=== PATIENT | male | born 1965 ===

== ENCOUNTER 2021-06-05 09:20 | Emergency (ER) | payer MEDICAID, SELFPAY ==
--- NOTE | ~2021-06-05 | CT_ITS ---
EXAMINATION: CT HEAD WITHOUT CONTRAST CLINICAL INFORMATION: Left-sided weakness for one week COMPARISON: Previous head CT August 2010 TECHNIQUE: Contiguous axial imaging was performed from the skull base to vertex without intravenous administration of contrast. This CT examination was performed using dose optimization techniques as appropriate, variously including the following: *Automated exposure control *Adjustment of mA and/or kV according to patient size (this includes techniques or standardized protocols for targeted exams where dose is matched to indication/reason for exam; i.e. extremities or head) *Use of iterative reconstruction technique DLP: 731 mGy-cm FINDINGS: There is no evidence of acute intracranial hemorrhage or territorial infarction. No abnormal mass effect or midline shift is seen. [place] to white matter differentiation is well preserved. No extra-axial fluid collections are identified. The ventricles are normal in size. There is no abnormal attenuation within the brain parenchyma. The osseous structures and soft tissues are normal. There is a focal small polyp or cyst in the left maxillary sinus. The mastoid air cells and visualized portions of the paranasal sinuses are otherwise clear. CT/CT head/brain wo con IMPRESSION: No acute intracranial pathology.
--- NOTE | 2021-06-05 10:13 | ED.NEUROSD ---
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 Mode of arrival: ambulatory Limitations: no limitations History of Present Illness HPI Narrative: weakness, stress, spirit left his body 1 week ago thinks he had a stroke Onset (ago): week(s) (1) Location: left arm and left leg History of same: No Severity: moderate Quality: weak Relieving factors: none Exacerbating factors: none Context: sudden onset On Anticoagulants: No Associated symptoms: other (anxiety, stress, weakness) Treatments Prior to Arrival: none Related Data Home Medications Medication Instructions Recorded Confirmed acetaminophen 325 mg tablet 650 mg PO Q6H PRN 06/05/21 06/05/21 aspirin 81 mg tablet,delayed 1 tab PO DAILY 06/05/21 06/05/21 release atenolol 50 mg tablet 1 tab PO DAILY 06/05/21 06/05/21 atorvastatin 40 mg tablet 1 tab PO BEDTIME 06/05/21 06/05/21 famotidine 40 mg tablet (Pepcid) 40 mg PO DAILY PRN 06/05/21 06/05/21 gabapentin 100 mg capsule 1 cap PO TID 06/05/21 06/05/21 hydroxyzine pamoate 25 mg capsule 1 cap PO BID PRN 06/05/21 06/05/21 losartan 100 mg tablet 1 tab PO DAILY 06/05/21 06/05/21 metformin 1,000 mg tablet 1 tab PO BID 06/05/21 06/05/21 omeprazole 20 mg capsule,delayed 1 cap PO DAILY 06/05/21 06/05/21 release paroxetine HCl 40 mg tablet 1 tab PO DAILY 06/05/21 06/05/21 Previous Rx's Medication Instructions Recorded metformin 1,000 mg tablet 1,000 mg PO BID #60 tab 06/05/21 Allergies Allergy/AdvReac Type Severity Reaction Status Date / Time acetaminophen [From Percocet] Allergy Mild HYPERTENSIO Unverified 06/12/20 16:21 N citalopram [From Celexa] Allergy Mild RASH Unverified 06/12/20 16:21 oxycodone [From Percocet] Allergy Mild HYPERTENSIO Unverified 06/12/20 16:21 N lisinopril Allergy Unknown Verified 02/14/19 00:00 Review of Systems Review of Systems: Constitutional : No Weight loss, No Fever, No Chills, No Fatigue, No Malaise ENT/Mouth : No sore throat, No Rhinorrhea Eyes: No Eye Pain, No Swelling, No Redness Cardiovascular : No Chest Pain, No SOB, No Dyspnea on Exertion, No Orthopnea, No Edema, No Palpitations Respiratory : No Cough, No Sputum, No Wheezing Gastrointestinal : No Nausea, No Vomiting, No Diarrhea, No Constipation, No abdominal Pain, No Hematochezia, No Melena Genitourinary : No Dysuria, No Urinary Frequency, No Hematuria, Musculoskeletal : No joint pain, No Myalgias, No Joint Swelling Skin : No Skin Lesions, No rash Neuro : pos Weakness, No Numbness, No Dizziness, No Headache Psych : pos Anxiety/Panic, No Depression Heme/Lymph: No Bruising, No Bleeding,No Lymphadenopathy Endocrine : No Polyuria, No Polydipsia All other systems reviewed and are negative [facility] Past Medical History Attestation statement: The following information was validated with the patient. Medical History Anxiety Depressed Diabetes HTN (hypertension) Social History Social History Patient Tobacco Use Status: Never used Tobacco Use of substances other than those prescribed or required for medical reasons: No Advance Directives: Yes Advance Directives Information Provided: Yes Advance Directives on File: No Physical Exam Vital Signs: Vital Signs: Last Vital Signs Temp 98.6 F 06/05/21 10:18 Pulse 71 06/05/21 11:14 Resp 15 06/05/21 11:14 BP 160/88 H 06/05/21 11:14 Pulse Ox 97 06/05/21 11:14 Body Mass Index 38.4 Appearance: Alert. Oriented X3. No acute distress. Anxious and tearful Eyes: Pupils equal, round and reactive to light. ENT: Pharynx normal. Neck: Normal inspection. Neck supple. CVS: Normal heart rate and rhythm. Pulses normal. Respiratory: No respiratory distress. Breath sounds normal. Abdomen: Soft and nontender. Skin: Skin warm and dry. Normal skin color. Normal skin turgor. Extremities: No lower extremity edema. No calf ttp Neuro: Oriented X 3. No motor deficit. No sensory deficit. Course Course Course Narrative: negative head CT at one week, BP improved workup negative no deficits seen MDM - Neuro Symptoms/Deficit MDM Narrative Medical decision making narrative: 56 yo male with HTN, DM, anxiety here tearful reports L sided weakness and he had a stroke or the spirit left his body 1 week ago - on exam NIH is 0. At this time no signs of deficits will obtain labs, CT head, EKG, repeat assessments I have no signs of deficits and he denie waxing and waning so TIA seems unlikely Lab Data Result diagrams: 06/05/21 10:38 06/05/21 10:38 Labs: Lab Results 06/05/21 06/05/21 06/05/21 Range/Units 10:38 10:38 10:38 WBC 6.4 (4.8-10.8) X10*3/uL RBC 4.60 (4.60-5.80) X10*6/uL Hgb 14.0 (14.0-18.0) g/dl Hct 40.7 L (42-52) % MCV 88.5 (80-98) fL MCH 30.4 (27.0-33.0) pg MCHC 34.4 (31.0-36.0) g/dl RDW 12.5 (11.0-16.0) % Plt Count 252 (160-400) X10*3/uL MPV 10.3 (9.4-12.4) fL Immature Gran % (Auto) 0.5 H (0.0-0.4) % Neut % (Auto) 62.6 (45-73) % Lymph % (Auto) 25.7 (20-40) % Hitchcock % (Auto) 8.4 (2-11) % Eos % (Auto) 2.2 (0-4) % Baso % (Auto) 0.6 (0-2) % Lymph # (Auto) 1.7 (1.2-4.9) X10*3/uL Hitchcock # (Auto) 0.5 (0.1-1.2) X10*3/uL Eos # (Auto) 0.1 (0.0-0.4) X10*3/uL Baso # (Auto) 0.0 (0.0-0.2) X10*3/uL Abs Immat Gran (auto) 0.03 (0.00-0.03) X10*3/uL Absolute Neuts (auto) 4.0 (2.0-8.3) X10*3/uL Absolute Nucleated RBC 0.000 (0.0-0.012) X10*3/uL Nucleated RBC % (auto) 0.0 (0.0-0.2) /100WBC PT (9.9-13.0) SEC INR (0.9-1.1) APTT (24.1-38.0) SEC Sodium 138 (135-145) mmol/L Potassium 4.2 (3.3-5.1) mmol/L Chloride 101 (96-108) mmol/L Carbon Dioxide 29 (22-29) mmol/L Anion Gap 12 (12-20) BUN 14 (9-16) mg/dL Creatinine 1.10 (0.5-1.4) mg/dL Estim Creat Clear Calc 74.2 Estimated GFR > 60 Random Glucose 227 H (60-115) mg/dL Calcium 9.6 (8.4-10.2) mg/dL Magnesium (1.6-2.6) mg/dL Total Bilirubin (0.0-1.0) mg/dL Direct Bilirubin (0.0-0.5) mg/dL AST (5-37) U/L ALT (0-40) U/L Alkaline Phosphatase (39-117) U/L Troponin I High Sens (<3.5-35.0) ng/L Total Protein (6.5-8.0) g/dL Albumin (3.5-5.0) g/dL Lipase (8-78) U/L TSH (0.32-4.0) uIU/mL COVID-19 (STEVIE) Negative (Negative) COVID-19 Clin Com See Note 06/05/21 06/05/21 06/05/21 Range/Units 10:38 10:38 10:38 WBC (4.8-10.8) X10*3/uL RBC (4.60-5.80) X10*6/uL Hgb (14.0-18.0) g/dl Hct (42-52) % MCV (80-98) fL MCH (27.0-33.0) pg MCHC (31.0-36.0) g/dl RDW (11.0-16.0) % Plt Count (160-400) X10*3/uL MPV (9.4-12.4) fL Immature Gran % (Auto) (0.0-0.4) % Neut % (Auto) (45-73) % Lymph % (Auto) (20-40) % Hitchcock % (Auto) (2-11) % Eos % (Auto) (0-4) % Baso % (Auto) (0-2) % Lymph # (Auto) (1.2-4.9) X10*3/uL Hitchcock # (Auto) (0.1-1.2) X10*3/uL Eos # (Auto) (0.0-0.4) X10*3/uL Baso # (Auto) (0.0-0.2) X10*3/uL Abs Immat Gran (auto) (0.00-0.03) X10*3/uL Absolute Neuts (auto) (2.0-8.3) X10*3/uL Absolute Nucleated RBC (0.0-0.012) X10*3/uL Nucleated RBC % (auto) (0.0-0.2) /100WBC PT 10.7 (9.9-13.0) SEC INR 0.9 (0.9-1.1) APTT 35.0 (24.1-38.0) SEC Sodium (135-145) mmol/L Potassium (3.3-5.1) mmol/L Chloride (96-108) mmol/L Carbon Dioxide (22-29) mmol/L Anion Gap (12-20) BUN (9-16) mg/dL Creatinine (0.5-1.4) mg/dL Estim Creat Clear Calc Estimated GFR Random Glucose (60-115) mg/dL Calcium (8.4-10.2) mg/dL Magnesium 1.8 (1.6-2.6) mg/dL Total Bilirubin 0.6 (0.0-1.0) mg/dL Direct Bilirubin 0.2 (0.0-0.5) mg/dL AST 16 (5-37) U/L ALT 25 (0-40) U/L Alkaline Phosphatase 51 (39-117) U/L Troponin I High Sens < 3.5 (<3.5-35.0) ng/L Total Protein 7.7 (6.5-8.0) g/dL Albumin 4.2 (3.5-5.0) g/dL Lipase 24 (8-78) U/L TSH 1.13 (0.32-4.0) uIU/mL COVID-19 (STEVIE) (Negative) COVID-19 Clin Com ECG Data Attestation: I personally reviewed and interpreted this ECG as follows: ECG interpretation date: 06/05/21 ECG interpretation time: 10:31 Interpretation: Rate: 74 Rhythm: NSR Baring: left, LVH Normal P waves. Normal BRENT. Normal QRS complex. ST T wave : normal no ABHAY qTC: normal prior studies: no acute ischemia The study has been interpreted contemporaneously by me. . NIH Stroke Scale Internal: Initial- Upon Arrival Level of Consciousness: Alert Level of Consciousness Questions: Answers both questions correctly Level of Consciousness Commands: Performs both tasks correctly Best Gaze: Normal Visual: No visual loss Facial Palsy: Normal Motor Arm (Right): No drift Motor Arm (Left): No drift Motor Leg (Right): No drift Motor Leg (Left): No drift Limb Ataxia: Absent Sensory: Normal Best Language: No aphasia Dysarthia: Normal Extinction and Inattention: No abnormality Score: 0 Discharge Plan Discharge Clinical Impression: Weakness, Anxiety Patient Disposition: Home, Self-Care Instructions: Weakness (ED), Anxiety (ED) Additional Instructions: return to ED for any worsening symptoms or concerns FINDINGS: There is no evidence of acute intracranial hemorrhage or territorial infarction. No abnormal mass effect or midline shift is seen. [place] to white matter differentiation is well preserved. No extra-axial fluid collections are identified. The ventricles are normal in size. There is no abnormal attenuation within the brain parenchyma. The osseous structures and soft tissues are normal. There is a focal small polyp or cyst in the left maxillary sinus. The mastoid air cells and visualized portions of the paranasal sinuses are otherwise clear. ? CT/CT head/brain wo con IMPRESSION: No acute intracranial pathology. Prescriptions: New metformin 1,000 mg tablet 1,000 mg PO BID Qty: 60 RF: 0 No Action atorvastatin 40 mg tablet 1 tab PO BEDTIME RF: 0 aspirin 81 mg tablet,delayed release (DR/EC) 1 tab PO DAILY RF: 0 metformin 1,000 mg tablet 1 tab PO BID RF: 0 omeprazole 20 mg capsule,delayed release(DR/EC) 1 cap PO DAILY RF: 0 gabapentin 100 mg capsule 1 cap PO TID RF: 0 paroxetine HCl 40 mg tablet 1 tab PO DAILY RF: 0 losartan 100 mg tablet 1 tab PO DAILY RF: 0 atenolol 50 mg tablet 1 tab PO DAILY RF: 0 hydroxyzine pamoate 25 mg capsule 1 cap PO BID PRN (Reason: Anxiety) RF: 0 acetaminophen 325 mg Tablet 650 mg PO Q6H PRN (Reason: Pain) RF: 0 famotidine [Pepcid] 40 mg Tablet 40 mg PO DAILY PRN (Reason: Gastric Reflux) RF: 0 Referrals: Physician,Unknown [Primary Care Provider] - 3 days Stand Alone Forms: Work/School Release
[2021-06-05 10:18] VITALS: BP 183/82; PULSE 74; RESP 18; TEMP 37; O2SAT 99; BMI 38.4
--- NOTE | 2021-06-05 10:22 | ECG_ITS ---
Test Reason : WEAKNESS Blood Pressure : / mmHG Vent. Rate : 074 BPM Atrial Rate : 074 BPM P-R Int : 198 ms QRS Dur : 118 ms QT Int : 358 ms P-R-T Axes : 036 -34 002 degrees QTc Int : 397 ms Normal sinus rhythm Left axis deviation Left ventricular hypertrophy with QRS widening Cannot rule out Septal infarct , age undetermined Abnormal ECG When compared with ECG of 10-OCT-2012 05:36, Left axis deviation is now Present FL interval has decreased Referred By: Vita Reyna Electronically Signed By:ISAC CHAN
[2021-06-05 10:47] LABS: MANUAL DIFF FLAG NO
[2021-06-05 10:49] LABS: Basophils Percent Auto 0.6 % (0-2); Eosinophils Absolute Auto 0.1 X10*3/uL (0.0-0.4); Eosinophils Percent Auto 2.2 % (0-4); Hematocrit 40.7 % (42-52); Imm Gran Abs Auto 0.03 X10*3/uL (0.00-0.03); Imm Gran Pct Auto 0.5 % (0.0-0.4); Lymphocytes Absolute Auto 1.7 X10*3/uL (1.2-4.9); Lymphocytes Percent Auto 25.7 % (20-40); Mean Corpuscular HGB Conc 34.4 g/dl (31.0-36.0); Mean Corpuscular Hemoglobin 30.4 pg (27.0-33.0); Mean Corpuscular Volume 88.5 fL (80-98); Mean Platelet Volume 10.3 fL (9.4-12.4); Monocytes Absolute Auto 0.5 X10*3/uL (0.1-1.2); Monocytes Percent Auto 8.4 % (2-11); Neutrophils Percent Auto 62.6 % (45-73); Platelet Count 252 X10*3/uL (160-400); Red Cell Distribution Width 12.5 % (11.0-16.0); White Blood Count 6.4 X10*3/uL (4.8-10.8)
[2021-06-05 10:59] LABS: INTERNATIONAL NORM RATIO 0.9 (0.9-1.1); Prothrombin Time 10.7 SEC (9.9-13.0)
[2021-06-05 11:02] LABS: Anion Gap 12 (12-20); Blood Urea Nitrogen 14 mg/dL (9-16); Calcium 9.6 mg/dL (8.4-10.2); Carbon Dioxide 29 mmol/L (22-29); Chloride 101 mmol/L (96-108); Creatinine Clr Calc Pharmacy 74.2; Estimated Glomerular Filt Rate > 60; Glucose Random 227 mg/dL (60-115); Potassium 4.2 mmol/L (3.3-5.1); Sodium 138 mmol/L (135-145)
[2021-06-05 11:06] LABS: Alanine Aminotransferase 25 U/L (0-40); Albumin Level 4.2 g/dL (3.5-5.0); Alkaline Phosphatase 51 U/L (39-117); Aspartate Amino Transferase 16 U/L (5-37); Bilirubin Direct 0.2 mg/dL (0.0-0.5); Bilirubin Total 0.6 mg/dL (0.0-1.0); COVID-19 Test Negative (Negative); IDNOW Serial# 9DD0AD1C; Lipase 24 U/L (8-78); Magnesium 1.8 mg/dL (1.6-2.6); Total Protein 7.7 g/dL (6.5-8.0)
[2021-06-05 11:08] LABS: Troponin-I High Sensitivity < 3.5 ng/L (<3.5-35.0)
[2021-06-05 11:14] VITALS: BP 160/88; PULSE 71; RESP 15; O2SAT 97
[2021-06-05 11:23] LABS: TSH reflex Free T4 1.13 uIU/mL (0.32-4.0)
--- NOTE | 2021-06-05 11:45 | PHA.MEDREC ---
Pharmacy Consult ? Medication Reconciliation Pharmacy has completed the medication reconciliation. There are no remarkable issues for provider's attention. Thais Cole, TristaD
[2021-06-05 11:49] LABS: Amphetamine Screen Urine Not Detected (Not Detect); Barbiturates, Urine Not Detected (Not Detect); Benzodiazepines Screen Urine Not Detected (Not Detect); Cannabinoid Screen Urine Not Detected (Not Detect); Cocaine Screen Urine Not Detected (Not Detect); Fentanyl, urine Not Detected (Not Detect); Opiate Screen Urine Not Detected (Not Detect); Phencyclidine Screen Urine Not Detected (Not Detect)
== END 2021-06-05 12:11 | disposition home or self-care (01) ==
PROVIDERS: Emergency Provider Emergency Medicine
DX: M79.602 Pain in left arm (principal); M79.605 Pain in left leg; F41.1 Generalized anxiety disorder; F43.0 Acute stress reaction; R29.700 NIHSS score 0; R53.1 Weakness; Z79.899 Other long term (current) drug therapy
CPT/HCPCS: 36415; 70450; 80048; 80076; 80307; 83690; 83735; 84443; 84484; 85025; 85610; 85730; 87635; 93005; 99283; 99284

== ENCOUNTER 2023-02-19 13:41 | Emergency (ER) | payer MEDICAID, SELFPAY ==
[2023-02-19 14:11] VITALS: BP 141/83; PULSE 71; RESP 18; TEMP 37; O2SAT 98; BMI 34.2
[2023-02-19 16:32] VITALS: BP 123/89; PULSE 69; RESP 18; TEMP 37; O2SAT 98
--- NOTE | 2023-02-19 18:18 | ED_ITS ---
HPI - Skin/Abscess/Foreign Bdy General Chief complaint: Skin/Abscess/Foreign Body Stated complaint: growth lower back of head Time Seen by Provider: 02/19/23 16:53 Source: patient Mode of arrival: ambulatory Limitations: no limitations History of Present Illness HPI narrative: This is a 57-year-old male, with a past medical history of diabetes, who presents to the emergency department with complaints of inflammation and pain to his lower neck and scalp. Patient reports that this area started off as what he thought was a pimple in the attempted to drain as well as apply warm compresses to the area. He states that the area has increased in size. He states that he is unable to sleep secondary to the pain. Denies any fevers or chills. Denies any drainage from the area. No other complaints or concerns at this time. Onset (ago): day(s) Location: head Severity: moderate Quality: aching and dull Pain Consistency: constant Relieving factors: immobilization and rest Exacerbating factors: palpation Context: none Associated symptoms: denies other symptoms Treatments prior to arrival: attempted to drain pus at home Related Data Home Medications Medication Instructions Recorded Confirmed acetaminophen 325 mg tablet 650 mg PO Q6H PRN Pain 06/05/21 06/05/21 aspirin 81 mg tablet,delayed 1 tab PO DAILY 06/05/21 06/05/21 release atenolol 50 mg tablet 1 tab PO DAILY 06/05/21 06/05/21 atorvastatin 40 mg tablet 1 tab PO BEDTIME 06/05/21 06/05/21 famotidine 40 mg tablet (Pepcid) 40 mg PO DAILY PRN Gastric Reflux 06/05/21 06/05/21 gabapentin 100 mg capsule 1 cap PO TID 06/05/21 06/05/21 hydroxyzine pamoate 25 mg capsule 1 cap PO BID PRN Anxiety 06/05/21 06/05/21 losartan 100 mg tablet 1 tab PO DAILY 06/05/21 06/05/21 metformin 1,000 mg tablet 1 tab PO BID 06/05/21 06/05/21 omeprazole 20 mg capsule,delayed 1 cap PO DAILY 06/05/21 06/05/21 release paroxetine HCl 40 mg tablet 1 tab PO DAILY 06/05/21 06/05/21 Previous Rx's Medication Instructions Recorded metformin 1,000 mg tablet 1,000 mg PO BID #60 tabs 06/05/21 cephalexin 500 mg capsule 500 mg PO QID 7 days #28 caps 02/19/23 ibuprofen 600 mg tablet 600 mg PO Q6H PRN pain #45 tabs 02/19/23 Allergies Allergy/AdvReac Type Severity Reaction Status Date / Time acetaminophen [From Percocet] Allergy Mild HYPERTENSIO Unverified 06/12/20 16:21 N citalopram [From Celexa] Allergy Mild RASH Unverified 06/12/20 16:21 oxycodone [From Percocet] Allergy Mild HYPERTENSIO Unverified 06/12/20 16:21 N lisinopril Allergy Unknown Verified 02/14/19 00:00 Review of Systems Review of Systems: Constitutional: No Weight loss, No Fever, No Chills ENT/Mouth: No Ear Pain, No Nasal Congestion, No Sinus Pain, No Hoarseness, No sore throat, No Rhinorrhea, No Swallowing Difficulty Cardiovascular: No Chest Pain, No SOB Respiratory: No Cough, No Sputum, No Wheezing Gastrointestinal: No Nausea, No Vomiting, No Diarrhea, No Constipation, No Abdominal pain Genitourinary: No Dysuria, No Urinary Frequency, No Hematuria, No Urinary Incontinence/retention, No Urgency, No Flank Pain Musculoskeletal: No joint pain, No Myalgias, No Joint Swelling Skin: + Skin Lesions, No rash Neuro: No Weakness, No Numbness, No Paresthesias Yes all other systems are reviewed and are negative [facility] Past Medical History Medical History Anxiety Depressed Diabetes HTN (hypertension) Social History Social History Patient Tobacco Use Status: Never used Tobacco Advance Directives: No Advance Directives Information Provided: Yes Physical Exam Vital Signs: Vital Signs: Last Vital Signs Temp 98.6 F 02/19/23 16:32 Pulse 69 02/19/23 16:32 Resp 18 02/19/23 16:32 BP 123/89 02/19/23 16:32 Pulse Ox 98 02/19/23 16:32 O2 Del Method Room Air 02/19/23 14:11 BMI result Body Mass Index 34.2 General: Awake, alert, and oriented X3. No acute distress. HEENT: Normal inspection CVS: Normal heart rate and rhythm. Pulses normal. Respiratory: No respiratory distress Skin: Posterior scalp with oval shaped indurated area of skin with mild warmth, no fluctuance or drainage. Mild tenderness to palpation. Extremities: Normal to inspection, ambulatory Neuro: Oriented X 3. No motor deficit. No sensory deficit. Medical Decision Making Medical Decision Making MDM Narrative: 57-year-old male, with a past medical history of diabetes, presenting for evaluation of posterior scalp ?cellulitis. Patient first noticed this 3 days ago, no injury or trauma. Patient is feeling well has had no fevers or chills. On examination, patient has a slightly indurated region of skin with mild warmth and tenderness to palpation. There is no fluctuance. It appears that this is an early cellulitis, will treat with oral antibiotics and apply warm compresses to the region. Patient is afebrile, nontoxic-appearing, in all vital signs are within normal limits. Discussed with patient importance of returning should symptoms worsen. Patient has good understanding and agrees with this plan. Differential Diagnosis Differential Diagnoses: The differential diagnosis associated with the presentation includes Cellulitis, abscess, tinea capitis, folliculitis Prescription Management I considered prescription management with: Antibiotic Chronic Conditions Patient?s care impacted by: Diabetes Discharge Plan Discharge Clinical Impression: Cellulitis Patient Disposition: Home, Self-Care Instructions: Cellulitis (ED) Additional Instructions: Please take prescribed antibiotics as directed. Please finish the entire course of antibiotics even if your feeling better. Apply warm compresses to the area 5-6 times per day. If any new or worsening symptoms occur including any fevers or chills, increasing redness swelling, tenderness, please return for re-evaluation. Your prescriptions were sent to [address] [address] [place] los antibi?ticos recetados seg?n las indicaciones. Termine todo el ciclo de antibi?ticos incluso si se siente mejor. Aplique compresas tibias en el ?marian 5-6 veces al d?a. Si se presentan s?ntomas nuevos o que empeoran, lolly fiebre o escalofr?os, aumento del enrojecimiento, hinchaz?n, sensibilidad, regrese para jimena nueva evaluaci?n. Maria Teresa recetas fueron enviadas a [facility] [address] [facility], [place] [address] Prescriptions: New cephalexin 500 mg capsule 500 mg PO QID 7 Days Qty: 28 0RF ibuprofen 600 mg tablet 600 mg PO Q6H PRN (Reason: pain) Qty: 45 0RF No Action atorvastatin 40 mg tablet 1 tab PO BEDTIME aspirin 81 mg tablet,delayed release (DR/EC) 1 tab PO DAILY metformin 1,000 mg tablet 1 tab PO BID omeprazole 20 mg capsule,delayed release(DR/EC) 1 cap PO DAILY gabapentin 100 mg capsule 1 cap PO TID paroxetine HCl 40 mg tablet 1 tab PO DAILY losartan 100 mg tablet 1 tab PO DAILY atenolol 50 mg tablet 1 tab PO DAILY hydroxyzine pamoate 25 mg capsule 1 cap PO BID PRN (Reason: Anxiety) acetaminophen 325 mg Tablet 650 mg PO Q6H PRN (Reason: Pain) famotidine [Pepcid] 40 mg Tablet 40 mg PO DAILY PRN (Reason: Gastric Reflux) metformin 1,000 mg tablet 1,000 mg PO BID Qty: 60 0RF Interventions: ED Discharge Assessment Last Done: 02/19/23 17:40 Discharge Date/Time: 02/19/23 17:41
== END 2023-02-19 17:41 | disposition home or self-care (01) ==
PROVIDERS: Emergency Provider Emergency Medicine
DX: L03.811 Cellulitis of head [any part, except face] (principal); E11.9 Type 2 diabetes mellitus without complications; I10 Essential (primary) hypertension; Z79.82 Long term (current) use of aspirin; Z79.02 Long term (current) use of antithrombotics/antiplatelets; Z79.84 Long term (current) use of oral hypoglycemic drugs; Z79.899 Other long term (current) drug therapy
CPT/HCPCS: 99283

== ENCOUNTER 2023-11-28 09:24 | Outpatient (REF) | payer MEDICAID, SELFPAY ==
[2023-11-28 12:04] LABS: Anion Gap 11 (12-20); Blood Urea Nitrogen 11 mg/dL (9-16); Calcium 9.8 mg/dL (8.4-10.2); Carbon Dioxide 29 mmol/L (22-29); Chloride 101 mmol/L (96-108); Cholesterol 235 mg/dL (<200); Estimated Glomerular Filt Rate > 60; Glucose Random 181 mg/dL (60-115); HDL Cholesterol 37 mg/dL (>40); Potassium 4.4 mmol/L (3.3-5.1); Sodium 137 mmol/L (135-145); Triglycerides 417 mg/dL (<150)
[2023-11-28 12:26] LABS: Vitamin B12 384 pg/mL (200-900)
[2023-11-28 12:31] LABS: Creatinine Urine 144.02 mg/dL; Microalbum/Creatinine Ratio Ur 15.9 ug/mg cr (<30)
== END 2023-11-28 09:25 | disposition home or self-care (01) ==
LOC: HO.HHCL 09:24
PROVIDERS: Visit Provider Nurse Practitioner Primary Care
DX: E11.69 Type 2 diabetes mellitus with other specified complication (principal); E78.5 Hyperlipidemia, unspecified
CPT/HCPCS: 36415; 80048; 80061; 82043; 82570; 82607

== ENCOUNTER 2024-01-12 11:17 | Outpatient (AMB) | payer MEDICAID, SELFPAY ==
--- NOTE | 2024-01-12 11:30 | A.OFFVIS_ITS ---
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 Patient has bilateral varicose veins with pain , left leg is more concerning to the patient. States his legs get hot to the touch and that his legs swell when he walks . 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 Complaints include pain over varicosities, swelling of lower extremitie s, cramping, fatigue, and heaviness of the lower extremities. In addition he does complain of itching It has been affecting there daily activities including walking. It is noted more so in left leg. Patient denies any previous venous surgery or injections. Patient denies any history of DVT/ PE. Patient denies any history of phlebitis. Trial of compression includes - [id number] They now present for vascular evaluation regarding their varicose veins. [facility] Medical History Diabetes HTN (hypertension) Anxiety Depressed Social History Patient Tobacco Use Status: Never used Tobacco Review of Systems Const Reports as per HPI ENT Reports no additional complaints Card Denies chest pain, Denies chest pain at rest and Denies chest pain with activity Resp Denies chest congestion and Denies cough GI Reports no additional complaints Musc Details: pain over varicosities, aching of lower extremities, swelling, cramping, heaviness and tiredness, itching Denies abnormal gait Skin/Breast Reports pruritus and Denies wounds Neuro Reports no additional complaints and Denies abnormal gait Psych Denies no additional complaints Physical Exam Const General: cooperative, healthy appearing and comfortable Orientation/consciousness: oriented to person, oriented to place and oriented to time Neck Carotids: no bruits Chest Chest palpation & inspection: normal inspection of the chest and normal palpation of entire chest wall Resp Effort & Inspection: normal respiratory effort and able to speak in complete sentences Cardio Rate: regular rate Heart sounds: S1 normal heart sound present and S2 normal heart sound present Peripheral pulses: Peripheral pulses 2+ throughout GI Inspection: Yes normal to inspection Skin Other: +2 edema, large rope-like varicosities greater than 4 mm cluster left calf CEAP Classification C4 - skin color changes Ep - Etiology Primary As - superficial veins P - reflux General skin exam: dry skin Neuro General: oriented to person, oriented to place and oriented to time Extrem Right lower extremity: full ROM, normal capillary refill and edema Left lower extremity: full ROM, normal capillary refill and edema Psych Mental Status: mental status grossly normal Assessment & Plan Assessment & Plan (1) Varicose veins of left lower extremity with inflammation: Code(s): I83.12 - Varicose veins of left lower extremity with inflammation Category: Medical Plan: In short, the patient has evidence of venous insufficiency. I have discussed the pathophysiology with the patient. In addition I have provided informational material regarding venous disease to the patient. We have discussed conservative measures including compression, elevation, and exercise. I have also provided a handout regarding appropriate use of compression stockings and where to purchase good compression stockings as well. I have taken the liberty of ordering venous insufficiency testing with the patient. They will follow up with me after testing. The patient had an opportunity to ask questions regarding the treatment plan. All questions were answered. Imaging studies, laboratory studies and physical exam results were discussed and reviewed in detail. No major barriers to understanding were identified. The patient expressed understanding and agreement with the above treatment plan. The patient is aware they should contact our office by phone for worsening of the current condition or the appearance of new symptoms. Thank you for allowing me to participate in the vascular care of this patient. If you have any questions or concerns regarding the treatment for the above condition please do not hesitate to contact me. The office telephone contact is [phone]. This note is constructed using voice recognition software. While every effort has been made to ensure accuracy, die try out worker errors may have been included. Thank you for allowing me to participate in the care of your patient. Yours sincerely, Anupam Bettencourt MD, FACS, R.P.V.I. Orders: Orders US venous duplex LE BI 1 Week I83.12 - Varicose veins of left lower extremity with inflammation
== END 2024-01-12 11:59 | disposition home or self-care (01) ==
PROVIDERS: PCP Nurse Practitioner Primary Care; Referring Provider Nurse Practitioner Primary Care; Visit Provider Surgery Vascular Surgery
DX: I83.12 Varicose veins of left lower extremity with inflammation (principal)
CPT/HCPCS: 99203

== ENCOUNTER → 2024-01-12 11:17 | Outpatient (BNVA) | payer MEDICAID, SELFPAY | PROVIDERS: PCP Nurse Practitioner Primary Care; Visit Provider Surgery Vascular Surgery | DX: I83.12 Varicose veins of left lower extremity with inflammation (principal) | CPT/HCPCS: 99202 ==

== ENCOUNTER → 2024-01-31 10:56 | Outpatient (BNVA) | payer MEDICAID, SELFPAY | PROVIDERS: PCP Nurse Practitioner Primary Care; Visit Provider Surgery ==

== ENCOUNTER 2024-02-07 12:42 | Outpatient (REF) | payer MEDICAID, SELFPAY ==
--- NOTE | ~2024-02-07 | US_ITS ---
EXAMINATION: US LOWER EXTREMITY VENOUS (REFLUX EXAM), BILATERAL CLINICAL INDICATION: Chronic venous insufficiency with left lower extremity varicose veins, inflammation and pain COMPARISON: None. TECHNIQUE: Color flow triplex imaging and compression Doppler was performed to evaluate both the deep and the superficial systems bilaterally. To evaluate the superficial system, the examination was performed in the upright position. Color-flow Doppler ultrasound and compression ultrasound were utilized. In addition, maneuvers were utilized to demonstrate reflux. FINDINGS: 1. DEEP VENOUS ULTRASOUND OF THE RIGHT LOWER EXTREMITY: Common Femoral Vein: Compressible, normal respiratory variation and augmented flow. Femoral Vein: Compressible, normal color flow and augmentation. Popliteal Vein: Compressible, normal augmentation. Deep Reflux: There is no evidence of reflux in the deep system in either the common femoral vein, superficial femoral or the popliteal vein. There is no evidence of a Mohr's cyst. 2. SUPERFICIAL ULTRASOUND WITH DOPPLER OF RIGHT LOWER EXTREMITY: GREAT SAPHENOUS VEIN: Saphenofemoral Junction: 0.7 cm; Reflux: 0 ms Proximal Thigh: 0.4 cm; Reflux: 1472 ms Mid Thigh: 0.3 cm; Reflux: 816 ms Above Knee: 0.3 cm; Reflux: 0 ms At Knee: 0.3 cm; Reflux: 0 ms Below Knee: 0.3 cm; Reflux: 0 ms Mid Calf: 0.3 cm; Reflux: 0 ms Ankle: 0.2 cm; Reflux: 0 ms DUPLICATED MEDIAL GREAT SAPHENOUS VEIN: Diameter: None imaged Reflux: NA DUPLICATED LATERAL GREAT SAPHENOUS VEIN: Diameter: None imaged Reflux: NA SMALL SAPHENOUS VEIN: Saphenopopliteal Junction: 0.1 cm; Reflux: 0 ms Proximal: 0.1 cm; Reflux: 0 ms Distal: 0.2 cm; Reflux: 0 ms VEIN OF GIACOMINI: Size: NA Reflux: NA PERFORATORS: Location: None significant Size: NA Reflux: NA VARICOSITIES: Location: Proximal thigh off the great saphenous vein Size: 0.3 cm Reflux: None 3. DEEP VENOUS ULTRASOUND OF THE LEFT LOWER EXTREMITY: Common Femoral Vein: Compressible, normal respiratory variation and augmented flow. Femoral Vein: Compressible, normal color flow and augmentation. Popliteal Vein: Compressible, normal augmentation. Deep Reflux: There is no evidence of reflux in the deep system in either the common femoral vein, superficial femoral or the popliteal vein. There is no evidence of a Mohr's cyst. 4. SUPERFICIAL ULTRASOUND WITH DOPPLER OF LEFT LOWER EXTREMITY: GREAT SAPHENOUS VEIN: Saphenofemoral Junction: 0.7 cm; Reflux: 1952 ms Proximal Thigh: 0.5 cm; Reflux: 1408 ms Mid Thigh: 0.5 cm; Reflux: 2100 ms Above Knee: 0.4 cm; Reflux: 2104 ms At Knee: 1.0 cm; Reflux: 2664 ms Below Knee: 0.3 cm; Reflux: 1532 ms Mid Calf: 0.2 cm; Reflux: 0 ms Ankle: 0.1 cm; Reflux: 0 ms DUPLICATED MEDIAL GREAT SAPHENOUS VEIN: Diameter: None imaged Reflux: NA DUPLICATED LATERAL GREAT SAPHENOUS VEIN: Diameter: 0.2 cm Reflux: On SMALL SAPHENOUS VEIN: Saphenopopliteal Junction: 0.3 cm; Reflux: 0 ms Proximal: 0.1 cm; Reflux: 0 ms Distal: 0.1 cm; Reflux: 0 ms VEIN OF GIACOMINI: Size: NA Reflux: NA PERFORATORS: Location: None significant Size: NA Reflux: NA VARICOSITIES: Location: Proximal calf off the great saphenous vein Size: 0.3 to 0.4 cm Reflux: Ranging from 744 ms to 1532 ms US/US venous duplex LE BI IMPRESSION: Right: Segmental areas of reflux in the great saphenous vein in the proximal and mid thigh. Varicose vein in the proximal thigh without reflux as described above Left: Severe reflux throughout the left great saphenous vein graft from of the thigh to proximal calf. Multiple varicose veins in the proximal calf with reflux as described above
== END 2024-02-07 12:43 | disposition home or self-care (01) ==
LOC: HO.US 12:42
PROVIDERS: PCP Nurse Practitioner Primary Care; Visit Provider Surgery Vascular Surgery
DX: I83.12 Varicose veins of left lower extremity with inflammation (principal)
CPT/HCPCS: 93970

== ENCOUNTER 2024-05-17 12:33 | Outpatient (AMB) | payer MEDICAID, SELFPAY ==
--- NOTE | 2024-05-17 12:58 | MHC.OFFVIS ---
Intake Visit Reasons: Follow up 02/06 Intake Note: Patient presents for follow up US. He experiences swelling and cramping often primarily in his left leg. Accompanied by: Self / Same As Patient Allergies acetaminophen [From Percocet] Allergy (Mild, Verified 05/17/24 12:59) HYPERTENSION citalopram [From Celexa] Allergy (Mild, Verified 05/17/24 12:59) RASH oxycodone [From Percocet] Allergy (Mild, Verified 05/17/24 12:59) HYPERTENSION lisinopril Adverse Reaction (Unknown, Verified 05/17/24 12:59) Unknown HPI HPI Follow up 02/06: Details: Very pleasant 58-year-old gentleman presents for follow-up evaluation regarding venous disease. He has this large cluster varicosities in his left calf that have been a source of pain and discomfort for him. Now presents for routine follow-up with venous insufficiency testing. Of note he has used compression with minimal relief. He now presents for follow-up. [facility] Medical History (Updated 01/12/24 @ 12:25 by Anupam Bettencourt MD) Diabetes HTN (hypertension) Anxiety Depressed Surgical History (Updated 01/31/24 @ 11:30 by Eufemia Davila CMA) No history of previous surgery Social History (Updated 01/31/24 @ 11:31 by Eufemia Davila CMA) Alcohol intake: former Patient Tobacco Use Status: Current someday Tobacco user Tobacco use type: Cigar Review of Systems Const Reports as per HPI ENT Reports no additional complaints Card Denies chest pain, Denies chest pain at rest and Denies chest pain with activity Resp Denies chest congestion and Denies cough GI Reports no additional complaints Musc Details: pain over varicosities, aching of lower extremities, swelling, cramping, heaviness and tiredness, itching Denies abnormal gait Skin/Breast Reports pruritus and Denies wounds Neuro Reports no additional complaints and Denies abnormal gait Psych Denies no additional complaints Physical Exam Const General: cooperative, healthy appearing and comfortable Orientation/consciousness: oriented to person, oriented to place and oriented to time Neck Carotids: no bruits Chest Chest palpation & inspection: normal inspection of the chest and normal palpation of entire chest wall Resp Effort & Inspection: normal respiratory effort and able to speak in complete sentences Cardio Rate: regular rate Heart sounds: S1 normal heart sound present and S2 normal heart sound present Peripheral pulses: Peripheral pulses 2+ throughout GI Inspection: Yes normal to inspection Skin Other: +2 edema, large rope-like varicosities greater than 4 mm left calf CEAP Classification C4 - skin color changes Ep - Etiology Primary As - superficial veins P - reflux General skin exam: dry skin Neuro General: oriented to person, oriented to place and oriented to time Extrem Right lower extremity: full ROM, normal capillary refill and edema Left lower extremity: full ROM, normal capillary refill and edema Psych Mental Status: mental status grossly normal Results Reviewed Results Reviewed: Brief summary of venous insufficiency testing is as follows: right great saphenous vein: Positive right small saphenous vein: negative right accessory vein: none present left great saphenous vein: Positive left small saphenous vein: negative left accessory vein: none present Please note there is no evidence of any venous aneurysms or significant tortuosity Assessment & Plan Assessment & Plan (1) Varicose veins of left lower extremity with inflammation: Code(s): I83.12 - Varicose veins of left lower extremity with inflammation Category: Medical Plan: This patient has varicose veins with inflammation. They continue to be a source of discomfort for the patient. The patient has tried conservative treatment with compression, leg elevation and exercise program for over 3 months time. They have been compliant with all treatment. This has provided minimal relief for the patient. I do not anticipate this course of treatment will alter the underlying etiology. The patient has been scheduled for lower extremity venous treatment inclusive of --- left great saphenous vein radiofrequency ablation. Risks, benefits, and complications of this procedure has been discussed in detail with the patient including but not limited to bleeding, infection, and the development of a DVT. The patient has demonstrated a clear understanding and has consented. We will schedule the patient as soon as possible. Thank you for allowing us to participate in this patient's care. If there are any questions or concerns please do not hesitate to contact us. Coding Level of Care Code Est Pt Level 4 (52944) Diagnoses Varicose veins of left lower extremity with inflammation I83.12
== END 2024-05-17 13:24 | disposition home or self-care (01) ==
PROVIDERS: PCP Nurse Practitioner Primary Care; Visit Provider Surgery Vascular Surgery
DX: I83.12 Varicose veins of left lower extremity with inflammation (principal)
CPT/HCPCS: 99214

== ENCOUNTER → 2024-05-17 12:33 | Outpatient (BNVA) | payer MEDICAID, SELFPAY | PROVIDERS: PCP Nurse Practitioner Primary Care; Visit Provider Surgery Vascular Surgery | DX: I83.12 Varicose veins of left lower extremity with inflammation (principal); I83.812 Varicose veins of left lower extremity with pain | CPT/HCPCS: 99212 ==

== ENCOUNTER 2024-05-18 07:10 | Outpatient (AMB) | payer MEDICAID, SELFPAY ==
--- NOTE | 2024-05-18 07:38 | MHC.OFFVIS ---
Intake Visit Reasons: Left gsv rfa Accompanied by: Self / Same As Patient Allergies acetaminophen [From Percocet] Allergy (Mild, Verified 05/18/24 07:38) HYPERTENSION citalopram [From Celexa] Allergy (Mild, Verified 05/18/24 07:38) RASH oxycodone [From Percocet] Allergy (Mild, Verified 05/18/24 07:38) HYPERTENSION lisinopril Adverse Reaction (Unknown, Verified 05/18/24 07:38) Unknown [facility] Medical History Diabetes HTN (hypertension) Anxiety Depressed Surgical History No history of previous surgery Social History Alcohol intake: former Patient Tobacco Use Status: Current someday Tobacco user Tobacco use type: Cigar Office Procedures Vascular Office Procedure Details Details: Diagnosis: Varicose veins with inflammation of left leg Procedure: Endovenous radiofrequency ablation of the left great and anterior saphenous vein(s) of the lower extremity. Anesthesia: Local infiltration 10 cc, Tumescent 400 cc. Estimated Blood Loss: minimal Specimen: Varicose veins The patient was transferred to the procedure suite and the insufficient saphenous vein was mapped by ultrasound and diagrammed on the overlying skin. The depth and diameter of the vein(s) to be treated was documented. The varicose tributary veins and suitable access sites were identified and mapped as well. The patient was then positioned supine on the procedure table. The affected limb was prepped and draped in the usual sterile fashion. The RF catheter was placed on the sterile field, flushed and wiped down, prepared, and connected by a sterile cable. The patient was placed in supine position and local anesthesia was instilled in the skin overlying the access site. A skin incision was made overlying the identified and mapped great saphenous vein entry site. The vein was accessed using ultrasound guidance and the Seldinger technique, a guide wire was introduced through the needle, which was then exchanged over the guide wire for a 6F sheath, which was secured in place. The guide wire was removed and the sheath was flushed. The RF catheter was placed into the vein through the sheath and preferentially, imaging was used to place the catheter tip just inferior to the superficial epigastric vein to preserve normal physiological flow in that vein. Additionally, it was confirmed by ultrasound guidance that the catheter tip was also placed a minimum of 1.5cm distal to the saphenofemoral junction. After the RF catheter position was verified by ultrasound, tumescent anesthesia was infiltrated, under ultrasound guidance, precisely into the perivenous compartment along the entire length of vein from the entry site to the saphenofemoral junction until a halo of fluid was noted around the vein. The patient was then placed in supine position to further exsanguinate the superficial venous system. After RF catheter position was again confirmed with ultrasound imaging, and under direct external compression along the length of the heating element, RF energy was applied. The vein was segmentally ablated by heating a 8 cm segment and then indexing the catheter forward by 7.5 cm until the treatment length is completed. Device temperature was maintained at 120 plus or minus 5 degrees C with an initial power level of 40W dropping to below 20W for each treatment. Total vein length treated 16 cm Total cycles of RF 3. In addition an anterior accessory vein was identified. This did demonstrate reflux. In a similar fashion we accessed the vein and segmentally ablated by heating an 8 cm segment and then indexing the catheter forward by 7.5 cm until the treatment length was complete. Total treatment length was 16 cm with a total cycle of RF 2 Repeat ultrasound of the saphenous vein was performed, confirming successful treatment. The catheter and sheath were withdrawn and hemostasis established with direct pressure. After assuring hemostasis, the skin incision over the saphenous vein was closed with a bandage and a compression wrap, and/ or graduated compression stocking was applied from the level of the foot to the most proximal level of the thigh. 54078 - Endovenous RF, 1st Vein 13240 - RF Ablation, subsequent vein All charges added?: Procedure code (CPT) selection complete Assessment & Plan Assessment & Plan (1) Varicose veins of left lower extremity with inflammation: Comment: 05/18/2024 - left great and accessory saphenous vein ablation Code(s): I83.12 - Varicose veins of left lower extremity with inflammation Category: Medical Plan: See op note Coding Level of Care Code Procedure Only Diagnoses Varicose veins of left lower extremity with inflammation I83.12 CPT Codes Details - Vascular 1: 44065 - Endovenous RF, 1st Vein ([id number]) Details - Vascular 2: 06412 - RF Ablation, subsequent vein ([id number])
== END 2024-05-18 08:37 | disposition home or self-care (01) ==
PROVIDERS: PCP Nurse Practitioner Primary Care; Visit Provider Surgery Vascular Surgery
DX: I83.12 Varicose veins of left lower extremity with inflammation (principal)
CPT/HCPCS: 36475; 36476

== ENCOUNTER → 2024-05-18 07:10 | Outpatient (BNVA) | payer MEDICAID, SELFPAY | PROVIDERS: PCP Nurse Practitioner Primary Care; Visit Provider Surgery Vascular Surgery | DX: I83.12 Varicose veins of left lower extremity with inflammation (principal) | CPT/HCPCS: 36475; 36476 ==

== ENCOUNTER 2024-05-21 11:15 | Outpatient (REF) | payer MEDICAID, SELFPAY ==
--- NOTE | ~2024-05-21 | US_ITS ---
EXAMINATION: TRIPLEX SCANNING OF LEFT LOWER EXTREMITY; SUPERFICIAL ULTRASOUND WITH DOPPLER OF LEFTLOWER EXTREMITY CLINICAL INFORMATION: Status post RF ablation of the left great saphenous vein. Originally performed on 05/18/2024. COMPARISON: 02/07/2024. TECHNIQUE: Color flow triplex imaging and compression Doppler were performed as well as superficial ultrasound with Doppler. FINDINGS: TRIPLEX SCANNING OF LEFT LOWER EXTREMITY: Respiratory variation, normal compression and augmented flow are noted throughout the lower extremity. The visualized common femoral vein, femoral vein, profunda femoral vein, popliteal vein and the calf veins show no evidence of deep venous thrombosis. There is no evidence of Mohr's cyst. SUPERFICIAL ULTRASOUND WITH DOPPLER OF LEFT LOWER EXTREMITY: The left great saphenous vein is occluded from the access site to 2.5 cm before the sapheno-femoral junction. There is no extension of thrombus into the deep system. US/US venous duplex LE IMPRESSION: 1. Normal triplex scan of the left without evidence of deep venous thrombosis. 2. Excellent appearance status post ablation of the left great saphenous vein. Electronically signed by: Arvin Rodrigues MD 05/21/2024 01:10 PM EDT
== END 2024-05-21 11:16 | disposition home or self-care (01) ==
LOC: HO.US 11:15
PROVIDERS: PCP Nurse Practitioner Primary Care; Visit Provider Surgery Vascular Surgery
DX: M79.605 Pain in left leg (principal)
CPT/HCPCS: 93971

== ENCOUNTER 2024-05-31 11:03 | Outpatient (AMB) | payer MEDICAID, SELFPAY ==
--- NOTE | 2024-05-31 11:13 | MHC.OFFVIS ---
Intake Visit Reasons: 2 week follow up left gsv rfa Intake Note: Patient presents for 2 week follow up left gsv rfa. He states his leg is doing well He states he has some soreness and occasional itching on the inner thigh area. Accompanied by: Self / Same As Patient Allergies acetaminophen [From Percocet] Allergy (Mild, Verified 05/31/24 11:15) HYPERTENSION citalopram [From Celexa] Allergy (Mild, Verified 05/31/24 11:15) RASH oxycodone [From Percocet] Allergy (Mild, Verified 05/31/24 11:15) HYPERTENSION lisinopril Adverse Reaction (Unknown, Verified 05/31/24 11:15) Unknown HPI HPI 2 week follow up left gsv rfa: Details: Very pleasant 59-year-old gentleman presents for follow-up status post left great saphenous vein ablation. Reports he is doing relatively well after the procedure. In addition his calf varicosities have decreased in size. Now presents for routine postprocedure follow-up. Of note postprocedure ultrasound was negative for DVT. [facility] Medical History Diabetes HTN (hypertension) Anxiety Depressed Surgical History No history of previous surgery Social History Alcohol intake: former Patient Tobacco Use Status: Current someday Tobacco user Tobacco use type: Cigar Review of Systems Const All systems reviewed & are unremarkable except as noted in HPI and below Reports no additional complaints ENT Reports Normal hearing present Card Denies chest pain, Denies chest pain at rest, Denies chest pain with activity and Denies pedal edema Resp Denies cough GI Denies abdominal pain Musc Denies abnormal gait, Denies muscle cramps and Denies radiating pain into limb Skin/Breast Denies skin ulcer and Denies wounds Neuro Reports Normal hearing present and Denies abnormal gait Psych Reports no additional complaints Physical Exam Const General: cooperative, healthy appearing and comfortable Orientation/consciousness: oriented to person, oriented to place and oriented to time HEENT Head: Yes normal to inspection Neck Neck: Yes normal visual inspection Carotids: no bruits Chest Chest palpation & inspection: normal inspection of the chest Resp Effort & Inspection: normal respiratory effort and able to speak in complete sentences Auscultation: clear to auscultation bilaterally, no crackles, no rales, no rhonchi and no wheezes Cardio Rate: regular rate Rhythm: regular rhythm Heart sounds: S1 normal heart sound present and S2 normal heart sound present Bruits: no carotid bruits Peripheral pulses: Peripheral pulses 2+ throughout GI Inspection: Yes normal to inspection Skin Wounds: no wounds Hair: normal Neuro General: oriented to person, oriented to place and oriented to time Cranial nerves: Yes CN's II-XII intact bilaterally and Yes Normal hearing present Cognition (Neuro): normal cognition Motor exam (neuro): 5/5 motor strength present throughout Extrem Other: venous exam: No significant superficial varicosities or spider telangiectasias, minimal edema General: No clubbing, No cyanosis and No edema Psych Appearance: grossly normal Mental Status: mental status grossly normal Speech and movement: Normal speech and movement present Assessment & Plan Assessment & Plan (1) Varicose veins of left lower extremity with inflammation: Comment: 05/18/2024 - left great and accessory saphenous vein ablation Code(s): I83.12 - Varicose veins of left lower extremity with inflammation Category: Medical Plan: The patient has done extremely well with all venous treatments. Patient's may often experience postprocedure phlebitic episodes and I have discussed with the patient use of warm compresses and NSAIDS if tolerated for pain discomfort. In addition, I have discussed continued conservative measures including use of compression, leg elevation, and exercise. The patient was also given an information sheet regarding appropriate use of compression stockings and future purchases. Thank you for allowing us to care for your patient with venous disease. Coding Level of Care Code Est Pt Level 3 (90249) Diagnoses Varicose veins of left lower extremity with inflammation I83.12
== END 2024-05-31 11:50 | disposition home or self-care (01) ==
LOC: HO.HVS 11:03
PROVIDERS: PCP Nurse Practitioner Primary Care; Visit Provider Surgery Vascular Surgery
DX: I83.12 Varicose veins of left lower extremity with inflammation (principal)
CPT/HCPCS: 99213

== ENCOUNTER → 2024-05-31 11:03 | Outpatient (BNVA) | payer MEDICAID, SELFPAY | PROVIDERS: PCP Nurse Practitioner Primary Care; Visit Provider Surgery Vascular Surgery | DX: I83.12 Varicose veins of left lower extremity with inflammation (principal) | CPT/HCPCS: 99212 ==

== ENCOUNTER → 2024-07-03 08:34 | Outpatient (BNVA) | payer MEDICAID, SELFPAY | PROVIDERS: PCP Nurse Practitioner Primary Care; Visit Provider Physician Assistant Surgical ==

== ENCOUNTER 2024-07-06 08:12 | Outpatient (AMB) | payer MEDICAID, SELFPAY ==
[2024-07-06 10:56] VITALS: BMI 33.8
--- NOTE | 2024-07-06 10:56 | A.OFFVIS_ITS ---
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 Public Service Required: Yes Director Public Service Services: Director Public Service Present Information Interpreted: clinical only Allergies acetaminophen [From Percocet] Allergy (Mild, Verified 07/06/24 10:59) HYPERTENSION citalopram [From Celexa] Allergy (Mild, Verified 07/06/24 10:59) RASH oxycodone [From Percocet] Allergy (Mild, Verified 07/06/24 10:59) HYPERTENSION lisinopril Adverse Reaction (Unknown, Verified 07/06/24 10:59) Unknown Medication List - Last Reconciled 07/06/24 by Juan Carlos Bello MD acetaminophen 650 mg PO Q6H PRN aspirin 1 tab PO DAILY atenolol 1 tab PO DAILY atorvastatin 1 tab PO BEDTIME gabapentin 1 cap PO TID hydroxyzine pamoate 1 cap PO BID PRN losartan 1 tab PO DAILY metformin 1 tab PO BID metformin 1,000 mg PO BID omeprazole 1 cap PO DAILY paroxetine HCl 1 tab PO DAILY HPI HPI TV [employer]PER[employer] SW[employer] BMI 33.8 *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*: Details: Start time: 10.49am, End time: 11.36am ?I spent 42 minutes speaking with the patient on the phone plus an additional 5 minutes reviewing and updating records for a total of 47 minutes HPI Comments Details: Previous weight loss efforts: shakes Wakes up: 11am, Sleeps: 2am Breakfast: skips Lunch: 12pm (bread) Dinner: 5pm (meat and vegetables) Snacks: 3pm (oatmeal) Exercise: none Fluids: Coffee x3/wk (cream and sugar), tea: no, soda: none, juice: with low blood sugars, ETOH: none PFSH Medical History (Updated 07/06/24 @ 11:18 by Juan Carlos Bello MD) DJD (degenerative joint disease) GERD (gastroesophageal reflux disease) Obstructive sleep apnea on CPAP Non-insulin dependent type 2 diabetes mellitus Obesity Diabetes HTN (hypertension) Anxiety Depressed Surgical History (Updated 07/03/24 @ 08:57 by Eufemia Davila CMA) History of surgery on lower extremity Family History (Updated 07/03/24 @ 08:58 by Eufemia Davila CMA) Mother No problems noted. Father No problems noted. Social History Alcohol intake: former Patient Tobacco Use Status: Current someday Tobacco user Tobacco use type: Cigar Telehealth Telehealth Telehealth Platform: Telephone Location of provider rendering services: practice address Location of patient: address on file Patient Identification confirmed using: Name, : Yes Telehealth method: voice only Patient verbally consented to treatment: Yes Patient verbally consented to billing insurance company: Yes Patient informed of any privacy concerns related to visit: Yes Minutes spent on Phone/Video with Pt.: 47 Assessment & Plan Assessment & Plan (1) Obesity: Code(s): E66.9 - Obesity, unspecified Category: Medical Qualifiers: Obesity type: due to excess calories Obesity classification: adult class 1 (BMI 30 - 34.9) Serious obesity comorbidity presence: with serious comorbidity Body mass index: BMI 33.0-33.9 Qualified Code(s): E66.811 - Obe sity, class 1; E66.09 - Other obesity due to excess calories; Z68.33 - Body mass index [BMI] 33.0-33.9, adult Plan: 1.? Plan for lap sleeve gastrectomy. If diaphragmatic or ventral hernias are present at time of surgery, these will be repaired laparoscopically as well. Risks and complications include possible conversion to an open procedure, anastomotic leak, bleeding requiring transfusion, small bowel obstruction, , DVT and pulmonary embolism, cardiac, or pulmonary complications, as mcfp complications such as anastomotic ulcer, insufficient weight loss and vitamin deficiencies. I emphasized the importance of close follow-up, adherence to instructions and good communication. 2. Nutritional counseling. Start with 2 CELEBRATE REBUILD protein (buy at [employer] shakes (ONE scoop EACH in 8oz low fat unsweetened almond milk each) at 12pm-2pm and 1pm-3pm, 1 protein bar (CELEBRATE protein bars, buy at [facility] [facility])) at 4pm-6pm, dinner at 7pm (8 forks of protein and 8 forks of salad/vegetables) AND TWO more protein bars after dinner at 9pm-11pm AND 12am (midnight) to 2am. So you do 2 protein shakes, 3 protein bars and one meal per day. Meal to include lean meat (beef, fish, pork, turkey, chicken), or irish yogurt, or egg whites, or beans with a salad with olive oil and fruits (berries, pears, apples, kiwi). Avoid salt, breads, potatoes, rice, pasta, desserts. 3. Each shake would be drunk slowly, like coffee in a period of 2 hours. 4. Cut each bar in 4 pieces and eat each piece in 30min ?to make each bar last 2 hours. 5. I emphasized the importance of measuring accurately the food portion and measure it when serving the food in plate 6. The meal portions include 8 full-size forks of meat and 8 full-size forks of salad. You always eat the meat portion but you can replace up to 4 forks for salad/vegetables with rice, potatoes or pasta, or a fruit ?if you like. The less you do it the better weight loss will be. 7. One full-size fork is what it can be scooped on the fork without falling aside and not what can be bit with the fork. Use regular forks like those you find in a typical restaurant. 8.? Please send me weight measurements as soon as possible and then once a week. Always include your diet and exercise plan. 9. Start walking outside daily, tracking calories with a goal of 300 calories per day, daily. Goal is to burn 2000 calories per week on exercise, which means either 300 calories daily, or 400 calories 5 days per week, or 500 calories 4 days per week, or 650 calories 3 days per week. 10. The best choice would be to purchase a stationary bike at home that can track calories. Let me know if you do so I can give you an exercise plan. 11. Goal is to lose at least 1.5-2lbs per week 12. Goal to lose 10% of your weight before surgery, which is about 22lbs. Ultimate weight goal: 200lbs before surgery 13. Please follow the diet plan exactly without any change. If you don't like something about the plan or you feel hungry you need to communicate with me so I can help you revise the plan. You should not change the plan yourself. 14. To be scheduled for EGD due to history of GERD. The possibility of biopsies was discussed. Patient needs to avoid use of NSAIDs and aspirin for 1 week prior to EGD. Risks of perforation and bleeding was discussed with the patient. This will be an outpatient procedure with IV sedation. 15. Emphasized the importance of checking his blood glucose levels frequently and daily and to report to me any blood glucose below 100, so I can adjust his insulin and prevent hypoglycemic episodes 16. Emphasized the importance of monitoring the blood pressure daily in am when wakes up and two more times throughout the day. If systolic blood pressure is 110 mmHg, or less I explained to the patient that needs to notify me. Also I explained the symptoms of orthostatic hypotension (dizziness and li ghtheadedness) for which the patient also needs to notify me.
== END 2024-07-06 11:38 | disposition home or self-care (01) ==
LOC: HO.HBS 08:12
PROVIDERS: PCP Nurse Practitioner Primary Care; Referring Provider Nurse Practitioner Primary Care; Visit Provider Surgery
DX: E66.811 Obesity, class 1 (principal); Z68.33 Body mass index [BMI] 33.0-33.9, adult
CPT/HCPCS: 99204

== ENCOUNTER → 2024-07-06 08:12 | Outpatient (BNVA) | payer MEDICAID, SELFPAY | PROVIDERS: PCP Nurse Practitioner Primary Care; Visit Provider Surgery ==

== ENCOUNTER 2024-07-13 10:08 | Outpatient (REF) | payer MEDICAID, SELFPAY ==
[2024-07-13 10:34] LABS: MANUAL DIFF FLAG NO
[2024-07-13 11:30] LABS: Basophils Absolute Auto 0.1 X10*3/uL (0.0-0.2); Basophils Percent Auto 0.8 % (0-2); Eosinophils Absolute Auto 0.4 X10*3/uL (0.0-0.4); Eosinophils Percent Auto 3.2 % (0-4); Hematocrit 43.6 % (42.0-52.0); Hemoglobin 14.7 g/dl (14.0-18.0); Imm Gran Abs Auto 0.04 X10*3/uL (0.00-0.03); Imm Gran Pct Auto 0.3 % (0.0-0.4); Lymphocytes Absolute Auto 3.4 X10*3/uL (1.2-4.9); Lymphocytes Percent Auto 29.1 % (20-40); Mean Corpuscular HGB Conc 33.7 g/dl (31.0-36.0); Mean Corpuscular Hemoglobin 30.2 pg (27.0-33.0); Mean Corpuscular Volume 89.7 fL (80.0-98.0); Mean Platelet Volume 10.5 fL (9.4-12.4); Monocytes Absolute Auto 0.8 X10*3/uL (0.1-1.2); Neutrophils Absolute Auto 6.9 x10*3/uL (2.0-8.3); Neutrophils Percent Auto 59.6 % (45-73); Platelet Count 264 X10*3/uL (160-400); Red Blood Count 4.86 X10*6/uL (4.60-5.80); Red Cell Distribution Width 12.9 % (11.0-16.0); White Blood Count 11.6 X10*3/uL (4.8-10.8)
[2024-07-13 12:28] LABS: Alanine Aminotransferase 22 U/L (0-40); Albumin Level 4.2 g/dL (3.5-5.0); Alkaline Phosphatase 46 U/L (39-117); Anion Gap 14 (12-20); Aspartate Amino Transferase 17 U/L (5-37); Bilirubin Total 0.7 mg/dL (0.0-1.0); Blood Urea Nitrogen 10 mg/dL (9-16); C Reactive Protein 0.23 mg/dL (< or = 0.50); Calcium 9.8 mg/dL (8.4-10.2); Carbon Dioxide 27 mmol/L (22-29); Chloride 102 mmol/L (96-108); Cholesterol 122 mg/dL (<200); Estimated Glomerular Filt Rate > 60; Ferritin 79 ng/mL (20-250); Glucose Random 110 mg/dL (60-115); HDL Cholesterol 36 mg/dL (>40); Insulin 11 uU/mL (2-29); Iron 71 mcg/dL (45-160); LDL Cholesterol Calculated 47 mg/dL (<100); Percent Iron Saturation 23 % (15-50); Potassium 3.9 mmol/L (3.3-5.1); Sodium 139 mmol/L (135-145); TSH reflex Free T4 1.25 uIU/mL (0.32-4.0); Total Iron Binding Capacity 315 mcg/dL (228-428); Total Protein 7.9 g/dL (6.5-8.0); Triglycerides 195 mg/dL (<150); Unsaturated Iron Binding 244 ug/dL; Vitamin D 25-OH Total 42.6 ng/mL (>30)
[2024-07-13 12:33] LABS: Estimated Average Glucose 148 mg/dL; Hemoglobin A1c % 6.8 % (<6.0); Total Hemoglobin (HGBA1C) 5756.0661 umol/L
[2024-07-13 12:44] LABS: Folate 11.5 ng/mL (> or = 4.0); Vitamin B12 391 pg/mL (200-900)
[2024-07-17 16:43] LABS: Zinc 64 mcg/dL (60-130)
[2024-07-21 11:24] LABS: Vitamin A 54 mcg/dL (38-98)
[2024-07-22 11:18] LABS: Vitamin B1 12 nmol/L (8-30)
== END 2024-07-13 10:09 | disposition home or self-care (01) ==
LOC: HO.LAB 10:08
PROVIDERS: PCP Nurse Practitioner Primary Care; Visit Provider Surgery
DX: E66.811 Obesity, class 1 (principal); E66.09 Other obesity due to excess calories; Z68.33 Body mass index [BMI] 33.0-33.9, adult; E11.9 Type 2 diabetes mellitus without complications; I10 Essential (primary) hypertension; G47.33 Obstructive sleep apnea (adult) (pediatric); K21.9 Gastro-esophageal reflux disease without esophagitis
CPT/HCPCS: 36415; 80053; 80061; 82306; 82607; 82728; 82746; 83036; 83525; 83540; 84425; 84443; 84590; 84630; 85025; 86140

== ENCOUNTER 2024-07-25 08:11 | Outpatient (REF) | payer MEDICAID, SELFPAY ==
--- NOTE | ~2024-07-25 | US_ITS ---
EXAMINATION: US COMPLETE ABDOMEN WITH LIVER ELASTOGRAPHY CLINICAL INFORMATION: E66.811 - Obesity, class 1 COMPARISON: None available. TECHNIQUE: Real-time imaging of the abdominal viscera. Noninvasive ultrasound liver fibrosis assessment is performed using Claudia ElastPQ point quantification shear wave elastography (pSWE) with a C5-2 MHz transducer. Multiple elastography samples are obtained. FINDINGS: PANCREAS: The visualized pancreatic head and body are normal in appearance. The remainder of the pancreas is obscured from visualization by the overlying bowel gas. ABDOMINAL AORTA: The proximal, middle, and distal aortic segments are normal in caliber. INFERIOR VENA CAVA: Visualized portions are normal. LIVER: The liver demonstrates normal size and contour with increased echogenicity. No focal lesion or intrahepatic biliary duct dilatation. The right lobe measures 15.1 cm in length. The left lobe measures 9.7 cm in length. Portal flow is towards the liver (hepatopetal). Shear wave liver elastography median stiffness is 1.61 m/s (reference: normal median stiffness is 1.3 m/s or less). IQR/median stiffness to assess sampling precision is 0.23 (reference: good quality data set is IQR/median stiffness of 0.15 or less). GALLBLADDER: The gallbladder is physiologically distended with a 2.5 cm gallstone. No wall thickening or pericholecystic fluid. COMMON BILE DUCT: Normal in caliber measuring 0.4 cm in diameter. RIGHT KIDNEY: No hydronephrosis. No renal calculi or focal parenchymal lesions. The kidney measures 9.6 cm in maximum dimension. LEFT KIDNEY: There is suggestion of an ill-defined hypoechoic vascular lesion along the lateral upper pole measuring 2.9 x 2.3 x 2.4 cm. No hydronephrosis. No renal calculi. The kidney measures 11.2 cm in maximum dimension. SPLEEN: The normal-appearing spleen measures 12.4 cm in maximum dimension. FREE FLUID: None. US/US abdomen comp w elastography IMPRESSION: 1. There is suggestion of an ill-defined 2.9 cm hypoechoic lesion in the lateral left upper renal pole which could represent renal cortex versus mass. If clinically warranted, consider cross sectional imaging such as MRI or CT for further assessment. 2. Hepatic steatosis. 3. Liver elastography: Although measurements appear to rule out compensated advanced chronic liver disease, there is statistical variability of the sampling which decreases accuracy. REFERENCE: Society of Radiologists in Ultrasound Liver Stiffness Thresholds (2020): LIVER STIFFNESS THRESHOLDS: *Liver Stiffness equal or less than 1.3 m/s: High probability of being normal. *Liver Stiffness less than 1.7 m/s: In the absence of other known clinical signs, rules out compensated advanced chronic liver disease. *Liver Stiffness 1.7-2.1 m/s: Suggestive of compensated advanced chronic liver disease but need further test for confirmation. *Liver Stiffness over 2.1 m/s: Rules in compensated advanced chronic liver disease. *Liver Stiffness over 2.4 m/s: Suggestive of clinically significant portal hypertension. QUALITY OF DATA SET: *IQR/Median value equal or less than 0.15 implies a quality data set. *IQR/Median value over 0.15 implies a poor quality data set. SIGNIFICANT CHANGE FROM PRIOR EXAM: Significant change if liver stiffness measurement is 10% or greater from prior exam. OTHER CONSIDERATIONS: The stage of liver fibrosis may be overestimated in the setting of acute hepatitis, liver inflammation, elevated liver function tests, hepatic vascular congestion, obstructive cholestasis, non-fasting state, and infiltrative diseases such as amyloidosis and lymphoma. In some patients with NAFLD, the liver stiffness thresholds for compensated advanced chronic liver disease may be lower. In causes other than viral hepatitis and NAFLD, liver stiffness thresholds are not well established. Electronically signed by: Elizabeth Leonardo DO 09/07/2024 10:15 AM [facility]
--- NOTE | ~2024-07-25 | XR_ITS ---
EXAMINATION: XR CHEST 2 VIEWS CLINICAL INFORMATION: Obesity, class1 E66.811. COMPARISON: XR Chest 10/10/2012 (Report only). TECHNIQUE: PA and lateral views of the chest were obtained. FINDINGS: The lungs are well expanded. No focal consolidation, effusion, edema, or pneumothorax. The cardiomediastinal silhouette is within normal limits for technique. No acute osseous abnormality. XR/XR chest 2V IMPRESSION: No acute pulmonary disease. Electronically signed by: Elizabeth Leonardo DO 09/07/2024 09:58 AM EST
== END 2024-07-25 08:12 | disposition home or self-care (01) ==
LOC: HO.US 08:11
PROVIDERS: PCP Nurse Practitioner Primary Care; Visit Provider Surgery
DX: E66.811 Obesity, class 1 (principal); E66.09 Other obesity due to excess calories; Z68.33 Body mass index [BMI] 33.0-33.9, adult; E11.9 Type 2 diabetes mellitus without complications; I10 Essential (primary) hypertension; G47.33 Obstructive sleep apnea (adult) (pediatric); K21.9 Gastro-esophageal reflux disease without esophagitis
CPT/HCPCS: 71046; 76700; 76981

== ENCOUNTER → 2024-07-26 10:09 | Outpatient (AMB) | payer OTHER, SELFPAY ==
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
== END ==
PROVIDERS: PCP Nurse Practitioner Primary Care; Visit Provider Counselor Mental Health
DX: F33.1 Major depressive disorder, recurrent, moderate (principal); F43.9 Reaction to severe stress, unspecified; F41.9 Anxiety disorder, unspecified
CPT/HCPCS: 90837

== ENCOUNTER → 2024-07-26 10:09 | Outpatient (BNVA) | payer MEDICAID, SELFPAY | PROVIDERS: PCP Nurse Practitioner Primary Care; Visit Provider Counselor Mental Health ==

== ENCOUNTER 2024-08-01 09:05 | Day surgery (SDC) | payer MEDICAID, SELFPAY ==
[2024-07-30 11:56] VITALS: BMI 33.8
--- NOTE | 2024-07-30 14:57 | HO.ANESPROP2 ---
Documented by User: Hailee Baumann NP 07/30/24 14:57 HPI - Anesthesia Eval Consult details Narrative: 59yo M for Upper Endoscopy PMF Active Problems Active Problems: All Active Problems Major depressive disorder, recurrent (Acute) Trauma and stressor-related disorder (Acute) Vitamin B12 deficiency (Acute) DJD (degenerative joint disease) (Acute) GERD (gastroesophageal reflux disease) (Acute) Obstructive sleep apnea on CPAP (Acute) HTN (hypertension) (Acute) Depressed (Acute) Anxiety (Acute) Non-insulin dependent type 2 diabetes mellitus (Acute) BMI 33.0-33.9,adult (Acute) Obesity (Acute) Varicose veins of left lower extremity with inflammation (Acute) Past Medical History Medical History Asthma DJD (degenerative joint disease) GERD (gastroesophageal reflux disease) Obstructive sleep apnea on CPAP Non-insulin dependent type 2 diabetes mellitus Obesity Diabetes HTN (hypertension) Anxiety Depressed Family History Family History Mother No problems noted. Father No problems noted. Surgical History Surgical History History of surgery History of surgery on lower extremity Social History Social History Alcohol intake: former Patient Tobacco Use Status: Never used Tobacco Tobacco use type: Cigar Use of substances other than those prescribed or required for medical reasons: No Are you DNR?: No Advance Directives: No Advance Directives Information Provided: Yes Nutrition Risks: No Nutritional Risk Poor oral hygiene: No Meds Allergies Allergy/AdvReac Type Severity Reaction Status Date / Time acetaminophen [From Percocet] Allergy Mild HYPERTENSIO Verified 07/06/24 10:59 N citalopram [From Celexa] Allergy Mild RASH Verified 07/06/24 10:59 oxycodone [From Percocet] Allergy Mild HYPERTENSIO Verified 07/06/24 10:59 N lisinopril AdvReac Unknown Unknown Verified 07/06/24 10:59 Home Medications ?Medication ?Instructions ?Recorded ?Confirmed ?Last Taken ?Type acetaminophen 325 mg tablet 650 mg PO Q6H PRN Pain 06/05/21 07/06/24 06/05/21 History aspirin 81 mg tablet,delayed 1 tab PO DAILY 06/05/21 07/06/24 06/05/21 History release atenolol 50 mg tablet 1 tab PO DAILY 06/05/21 07/06/24 06/05/21 History atorvastatin 40 mg tablet 1 tab PO BEDTIME 06/05/21 07/06/24 06/04/21 History gabapentin 100 mg capsule 1 cap PO TID 06/05/21 07/06/24 06/04/21 History hydroxyzine pamoate 25 mg capsule 1 cap PO BID PRN Anxiety 06/05/21 07/06/24 06/04/21 History losartan 100 mg tablet 1 tab PO DAILY 06/05/21 07/06/24 06/05/21 History metformin 1,000 mg tablet 1 tab PO BID 06/05/21 07/06/24 06/04/21 History omeprazole 20 mg capsule,delayed 1 cap PO DAILY 06/05/21 07/06/24 06/04/21 History release paroxetine HCl 40 mg tablet 1 tab PO DAILY 06/05/21 07/06/24 06/04/21 History dulaglutide 3 mg/0.5 mL mg subcut QWEEK 07/31/24 07/31/24 07/23/24 History subcutaneous pen injector (Trulicity) Exam Height,Weight and Vital Signs: Height 5 ft 8 in Weight 100.698 kg Assessment and Plan Assessment Anesthesia Assessment: Chart Reviewed Documented by User: Sally Varela MD 08/01/24 11:04 [facility] Past Medical History Medical History Asthma DJD (degenerative joint disease) GERD (gastroesophageal reflux disease) Obstructive sleep apnea on CPAP Non-insulin dependent type 2 diabetes mellitus Obesity Diabetes HTN (hypertension) Anxiety Depressed Family History Family History Mother No problems noted. Father No problems noted. Family history of problems with anesthesia: No Surgical History Surgical History History of surgery History of surgery on lower extremity History of Problems with Anesthesia: No Social History Social History Alcohol intake: former Patient Tobacco Use Status: Never used Tobacco Tobacco use type: Cigar Use of substances other than those prescribed or required for medical reasons: No Are you DNR?: No Advance Directives: No Advance Directives Information Provided: Yes Nutrition Risks: No Nutritional Risk Poor oral hygiene: No Meds Allergies Allergy/AdvReac Type Severity Reaction Status Date / Time acetaminophen [From Percocet] Allergy Mild HYPERTENSIO Verified 07/06/24 10:59 N citalopram [From Celexa] Allergy Mild RASH Verified 07/06/24 10:59 oxycodone [From Percocet] Allergy Mild HYPERTENSIO Verified 07/06/24 10:59 N lisinopril AdvReac Unknown Unknown Verified 07/06/24 10:59 Home Medications ?Medication ?Instructions ?Recorded ?Confirmed ?Last Taken ?Type acetaminophen 325 mg tablet 650 mg PO Q6H PRN Pain 06/05/21 07/06/24 06/05/21 History aspirin 81 mg tablet,delayed 1 tab PO DAILY 06/05/21 07/06/24 06/05/21 History release atenolol 50 mg tablet 1 tab PO DAILY 06/05/21 07/06/24 06/05/21 History atorvastatin 40 mg tablet 1 tab PO BEDTIME 06/05/21 07/06/24 06/04/21 History gabapentin 100 mg capsule 1 cap PO TID 06/05/21 07/06/24 06/04/21 History hydroxyzine pamoate 25 mg capsule 1 cap PO BID PRN Anxiety 06/05/21 07/06/24 06/04/21 History losartan 100 mg tablet 1 tab PO DAILY 06/05/21 07/06/24 06/05/21 History metformin 1,000 mg tablet 1 tab PO BID 06/05/21 07/06/24 06/04/21 History omeprazole 20 mg capsule,delayed 1 cap PO DAILY 06/05/21 07/06/24 06/04/21 History release paroxetine HCl 40 mg tablet 1 tab PO DAILY 06/05/21 07/06/24 06/04/21 History dulaglutide 3 mg/0.5 mL mg subcut QWEEK 07/31/24 07/31/24 07/23/24 History subcutaneous pen injector (Trulicity) Exam Height,Weight and Vital Signs: Height 5 ft 8 in Weight 100.698 kg Vital Signs Temp Pulse Resp BP Pulse Ox O2 Del Method 08/01/24 10:43 98.3 F 67 16 134/86 96 Room Air Pertinent Lab Results Pertinent Lab Results: Lab Results 08/01/24 Range/Units 10:48 POC Glucose 108 (60-115) mg/dL Airway Mallampati Class: II TM Dist: >3cm Neck ROM: Full Partial: Upper and Lower Loose/Missing/Broken Teeth: Yes (Denies broken or loose teeth) Heart: RRR Lungs: CTAB Assessment and Plan Assessment Anesthesia Assessment: Anesthesia Plan Discussed and Chart Reviewed Final Anesthetic Review Family History of Problems with Anesthesia: No History of Problems with Anesthesia: No NPO: Yes ASA Class: III Final Preanesthetic Review: No Changes in Pt Med Stat, Meds/Allgs Chart Reviewed, Consent Obtained/Reviewed and Anes Risks/Benef Reviewed Patient Risk: Intermediate Procedure Risk: Low Anesthetic Plan Anesthetic Plan: TIVA Disposition: Standard PACU
[2024-08-01 10:26] VITALS: BMI 34.1
[2024-08-01 10:43] VITALS: BP 134/86; PULSE 67; RESP 16; TEMP 36.8; O2SAT 96
[2024-08-01 10:52] LABS: Glucose, Whole Blood 108 mg/dL (60-115)
[2024-08-01] MEDS: Lactated Ringers 1,000 ML 80 ML IVCONT (10:55)
--- NOTE | 2024-08-01 11:08 | MHC.SHP ---
Pre-Procedural Eval Section A - 24 Hr Update-Section A only Date of Service: 08/01/24 The patient is an INPATIENT: No The patient has been examined within 24 hours of the surgical procedure. The History & Physical has been completed within 30 days and I have reviewed it.: Yes Section B - Complete if H&P > 30 days Chief Complaint: Morbid (severe) obesity due to excess calories Details of Present Illness: GERD Relevant Family History (Specify if Yes): No Relevant Social History: None Present Medications: None Medical History: No relevant PMH History of Previous Operations: No relevant previous surgery Allergies: Allergies Allergy/AdvReac Type Severity Reaction Status Date / Time acetaminophen [From Percocet] Allergy Mild HYPERTENSIO Verified 07/06/24 10:59 N citalopram [From Celexa] Allergy Mild RASH Verified 07/06/24 10:59 oxycodone [From Percocet] Allergy Mild HYPERTENSIO Verified 07/06/24 10:59 N lisinopril AdvReac Unknown Unknown Verified 07/06/24 10:59 Review of Systems Sugical H&P ROS: Negative: Constitution, Cardiovascular, Respiratory, Neurological, Psychiatric, Hem-Onc, Allergic/Immunologic, Gastrointestinal, Genitourinary, Musculoskeletal, Integumentary, Endocrine and Eyes/Ears/Nose/Throat Exam Surgical H&P Exam: Normal: HEENT, Normal: Heart, Normal: Lungs, Normal: Extremities, Normal: Abdomen, Normal: Skin and Normal: Neurological Plan Diagnosis/Plan: Unchanged (EGD to assess etiology of GERD. Risks of bleeding and perforation were discussed with the patient and he is in agreement with the plan.) I have reviewed the history and physical and performed a pertinent physical examination on my patient. No changes have occurred unless specified. Time Spent With Patient Time: Total time managing care of this patient today ____ minutes.
--- NOTE | 2024-08-01 11:13 | P.BOP_ITS ---
Brief Operative Note Date of Service: 08/01/24 Pre-op diagnosis: GERD Post-op diagnosis: same Procedure: PROCEDURE DATE: 08/01/2024 PREOPERATIVE DIAGNOSIS: GERD POSTOPERATIVE DIAGNOSIS: ?Same as above. 1) small hiatal hernia, 2) esophagitis PROCEDURE: Hcegalmn-[id number] with biopsies Surgeon: ?Abhijeet Bello M.D.. Ph.D. Pilot Boat Operator: None ? Anesthesia: IV sedation Estimated blood loss: ?Minimal FINDINGS AND PROCEDURE: ? OPERATIVE INDICATIONS: ?The patient is a 59 year old male known to me who is interested in bariatric surgery. The patient has GERD. Based on this information I recommended an upper endoscopy to evaluate the patient's symptoms. Risks and complications of the surgery were discussed with the patient in advance particularly the possibility of perforation or bleeding that may require surgical intervention. The patient understood the risks and was in agreement with the plan. ? PROCEDURE: After informed consent was obtained by the patient, the patient was ?transferred to the Operating Room and was placed in the supine position.? After successful induction of IV sedation, a mouth block was inserted and the patient was placed in the left lateral decubitus position. An upper endoscopy was performed next, the oropharynx and esophagus appeared within the normal limits. There was a small 2-3cm hiatal hernia. The z-line was irregular with tongues of gastric mucosa protruding into the esophagus in 50% circumference. Due to patient's desaturation, one biopsy was obtained from the distal esophagus 2-3 cm proximal to the GE junction and one additional biopsy from the GE junction. The stomach was entered and it appeared to be of normal size. There was no gastritis. There was no stricture or ulcer. A biopsy was obtained from the antrum. No significant bleeding was noted from any of the biopsy sites. Retroflexion of the scope was not done due to patient's desaturation the procedure had to end prematurely. The scope was then advanced into the duodenum which appeared to be normal as well. At that point the duodenum ?and the stomach were decompressed and the scope was withdrawn from the patient's mouth. The patient extubated and was transferred in stable condition to the Recovery Room for further care. I was present and performed all steps of the procedure. There were no residents to assist with this case. Abhijeet Bello M.D., Ph.D. Surgeon: Juan Carlos Bello MD Was an Pilot Boat Operator used for this Procedure?: No Estimated blood loss (mL): 0 IV fluids (mL): 400 Urine output (mL): 0 (No [place] to record output) Pathology: other (1) antrum x1, 2) GE junction x, 3) distal esophagus x) Condition: stable Disposition: PACU
[2024-08-01 11:49] VITALS: BP 121/77; PULSE 83; RESP 16; TEMP 36.2; O2SAT 100
[2024-08-01 12:04] VITALS: BP 129/85; PULSE 79; RESP 18; TEMP 36.3; O2SAT 96
== END 2024-08-01 12:37 | disposition home or self-care (01) ==
PROVIDERS: PCP Nurse Practitioner Primary Care; Visit Provider Surgery
PROC: 0DJ08ZZ Inspection of Upper Intestinal Tract, Via Natural or Artificial Opening Endoscopic (ICD-10-PCS; CPT 43235; principal; 2024-08-01 11:00)
DX: K21.9 Gastro-esophageal reflux disease without esophagitis (principal); E66.811 Obesity, class 1; Z68.33 Body mass index [BMI] 33.0-33.9, adult; F17.290 Nicotine dependence, other tobacco product, uncomplicated; K44.9 Diaphragmatic hernia without obstruction or gangrene; I10 Essential (primary) hypertension; E11.9 Type 2 diabetes mellitus without complications; G47.33 Obstructive sleep apnea (adult) (pediatric); F32.A Depression, unspecified; F41.9 Anxiety disorder, unspecified; Z79.82 Long term (current) use of aspirin; Z79.84 Long term (current) use of oral hypoglycemic drugs; Z79.899 Other long term (current) drug therapy; Z99.89 Dependence on other enabling machines and devices; Z88.5 Allergy status to narcotic agent; Z88.8 Allergy status to other drugs, medicaments and biological substances; Z98.890 Other specified postprocedural states; K20.80 Other esophagitis without bleeding
CPT/HCPCS: 43239; 82947; 88305; 88313; 88342; J1596; J2003; J2704

== ENCOUNTER → 2024-08-01 09:05 | Outpatient (BNV) | payer MEDICAID, SELFPAY | PROVIDERS: PCP Nurse Practitioner Primary Care; Visit Provider Surgery | DX: K44.9 Diaphragmatic hernia without obstruction or gangrene (principal) | CPT/HCPCS: 43239 ==

== ENCOUNTER → 2025-05-07 09:43 | Outpatient (REF) | payer MEDICAID, SELFPAY ==
--- NOTE | 2025-05-07 09:50 | PFT_ITS ---
Flows: FEV1: 94 % of predicted at 3.13 L FVC: 83 % of predicted at 3.56 L FEV1/FVC: 88 % Bronchodilator response: Absent Volumes: Total lung capacity: 86 % of predicted at 5.82 L Residual volume: 105 % of predicted at 2.19 L Slow vital capacity: 77 % of predicted at 3.63 L Expiratory reserve volume: 26 % of predicted at 0.31 L Diffusion capacity: Normal Impression: No obstructive or restrictive ventilatory defects. No bronchodilator response. Decreased expiratory reserve volume suggests extrathoracic restriction likely secondary to abdominal obesity. MTDD
[2025-05-07 10:26] VITALS: PULSE 81; O2SAT 98
--- OUTSIDE RECORDS SUMMARY | 2025-05-07 10:27 | XMS_ITS | Encounter Summary ---
Author Organization [employer] Address [address] [place] [address] Care Team Providers Care Clinical Esthetician Name Role Phone Gisel Patel Primary Care Provider [phone] Encounter Details Date Type Department Care Team ([facility] st Contact Info) Description 12/26/2024 Orders Only [facility] [address], [place] [phone] Gisel Patel ANP [address], [place] [phone] Social History Tobacco Use Types Packs/Day Years Used Date Smoking Tobacco: Former Cigarettes Q uit: 10/27/2022 Passive Smoke Exposure: Current Smokeless Tobacco: Never Alcohol Use Standard Drinks/Week Comments Never 0 (1 standard drink = 0.6 oz pur e alcohol) Depression Answer Date Recorded Patient Health Questionnaire-9 Score 16 09/16/2022 Housing Stability Answer Date Recorded What is your housing situation today? I do not have housing (Staying with others, in a hotel, in a jail, living outside on the street, on a beach, in a car, or in a park 11/30/[address] you li ve. Do you have problems with any of the following? None of the above 11/30/2023 Food Insecurity Answer Date Recorded Within the past 12 months, y ou worried that your food would run out before you got money to buy more: Often true 11/30/2023 Within the past 12 months,th e food you bought just didn't last and you didn't have enough money to get more: Often true 02/2024 Transportation Answer Date Recorded In the past 12 months, has l ack of transportation kept you from medical appts, meetings, work or from getting things needed for daily living? Yes, it has kept me from medical appointments or getting medications. 11/30/2023 Utilities Answer Date Recorded In the past 12 months, has t he electric, gas, oil or water company threatened to shut off services in your home? No 11/30/2023 Depression Answer Date Recorded Patient Health Questionnaire-2 Score 3 06/12/2024 Internet Access Answer Date Recorded Internet Access Q1 Yes 06/04/2024 Internet Access Q2 Not on file 06/04/2024 Sex and Gender Information Value Date Recorded Sex Assigned at Male 07/26/2022 10:15 AM EDT Legal Sex Male 10:15 AM EDT Gender Identity Male 07/26/2022 10:15 AM EDT Sexual Orientation Choose not to disclose 2021 10:15 AM EDT documented as of this encounter Plan of Treatment Not on file documented as of this encounter Visit Diagnoses Not on filedocumented in this encounter Additional Health Concerns Assessment Noted Time PHQ-9 Depression Total Score: 16 022 1:41 PM EST documented as of this encounter Care Teams Clinical Esthetician Relationship Specialty Start Date End Date Gisel Patel ANP [address] [place] [id number] PCP - General Family Medicine 05/19/21 documented as of this encounter
== END ==
LOC: HO.SL 09:43
PROVIDERS: PCP Nurse Practitioner Primary Care; Visit Provider Nurse Practitioner Primary Care
DX: J45.40 Moderate persistent asthma, uncomplicated (principal); G47.33 Obstructive sleep apnea (adult) (pediatric); R51.0 Headache with orthostatic component, not elsewhere classified; R40.0 Somnolence; R06.83 Snoring
CPT/HCPCS: 94010; 94640; 94727; 94729; 95806

== ENCOUNTER → 2025-05-07 09:50 | Outpatient (BNV) | payer MEDICAID, SELFPAY | PROVIDERS: PCP Nurse Practitioner Primary Care; Visit Provider Internal Medicine Pulmonary Disease | DX: G47.33 Obstructive sleep apnea (adult) (pediatric) (principal) | CPT/HCPCS: 95806 ==